=== PATIENT | female | born 1995 | race Caucasian/White ===

== ENCOUNTER 2017-06-11 09:40 | Inpatient (IN) | payer MEDICAID ==
[2017-06-11] MEDS ORDERED: Misoprostol 25 MCG (1/4 of 100 MCG) Tab VAG PRN ×2 (09:47→10:32)
[2017-06-11] MEDS ORDERED: Acetaminophen 325 MG Tab PO PRN (09:47)
[2017-06-11] MEDS ORDERED: Sodium Chloride 0.9% 10 ML Syringe FLUSH PRN (09:47)
[2017-06-11] MEDS ORDERED: Oxytocin/Normal Saline 30 UNIT/500 ML BAG IV SCH (10:00)
[2017-06-11] MEDS ORDERED: Misoprostol 50 MCG (1/2 of 100 MCG) Tab VAG PRN (10:25)
--- NOTE | 2017-06-11 13:31 | HP ---
DOS: 06/11/2017 CHIEF COMPLAINT: Post gestational age, induction of labor. HISTORY OF PRESENT ILLNESS: The patient is a 21-year-old female, G2, P1-0-0-1, who is currently 41 and 1/7 days gestation by a 23-week ultrasound. She was seen in the clinic this morning with Dr. Harris for a cervical exam, found to be 2 cm dilated and approximately 60% effaced. This morning, she was having contractions, but not severe enough that she required Tylenol or was concerned about going into labor. She has had no back pain, no regular timed contractions. She has no edema. No headaches or visual changes. No nausea or vomiting. Mother is blood type A positive, rubella immune, and GBS status is pending. PAST OBSTETRIC HISTORY: 06/06/15 3800 g female via here at [facility] at 39 weeks 5 days gestation. PAST MEDICAL HISTORY: Chlamydia, February 2017, treated with 1 g of azithromycin, confirmed curative treatment in April 2017, maternal anemia of , hemoglobin of 12.2 in second trimester, history of chickenpox, Pap smear with ASCUS. FAMILY HISTORY: Paternal uncle, history of bladder cancer. Paternal grandmother, history of cancer, unsure of what kind. Mother's side of the family, no medical concerns. SOCIAL HISTORY: The patient lives with , Bob Schaefer in [place]. since 2015. This is their first child together. works at [employer]. 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 They both quit smoking in October of 2016 when they found out she was . REVIEW OF SYSTEMS: Negative. General: The patient denies headaches, change in vision or blurry vision, sore throat, neck stiffness. Lungs: No cough, wheezing, or difficulty breathing. Chest: No palpitations, no chest pain. Abdomen: Denies abdominal pain, that is not from the uterine contractions. Contractions have been irregular and non-intense. Musculoskeletal: No edema, no joint pain. PHYSICAL EXAMINATION: Vital Signs: Admission vitals are currently pending. HEENT: Head is normocephalic and atraumatic. Eyes, pupils are PERRLA, globes are normal. Mucosal membranes moist. Neck: Supple. Nontender. Heart: Regular without murmur. S1, S2. Regular rate and rhythm. Pedal pulses are palpable. Radial pulses palpable. Lungs: Clear to auscultation bilaterally in anterior and posterior medina. Abdomen: Gravid habitus. Spine: Straight. SKIN: Warm and dry. LABORATORY DATA: Admission labs are pending. ASSESSMENT: 1. A 21-year-old female, at 41 weeks 1 day gestation, admitted for induction of labor. 2. G2, P1-0-0-1. 3. Chlamydia in , treated successfully with Zithromax. 4. Blood type A positive, rubella immune, GBS negative PLAN: The patient is admitted to the hospital at this time. We will be placing 50 mg of Cytotec for cervical ripening. The patient requesting to walk around post 30 minutes of placement of Cytotec. No concerns with her, being able to be up and walking around to further induce labor. The patient's questions have been answered and they are in agreement with this plan. [facility] /[id number] MTDD
--- NOTE | 2017-06-11 17:38 | PCM.SN ---
- Free Text/Narrative Note: DOS: 06-11-17 4439 Sarika doing well. Cytotec X 2 for post-term , 21yo @ 41w1d. tracings reassuring cervix 4cm, 75% effaced head low -2/-1st with cxn BOW palpable, and AROM carried out without complications with return of large amount of clear fluid baby currently LOP Will continue to monitor closely Sarika comfortable at this time. discussed irregular cxn pattern, and possible pitocin augmentation in needed. further management pending her course in labor. All questions answered for the couple. they seem pleased with plan at this time. hmb.
[2017-06-11] MEDS: Lactated Ringers 1,000 ML IV SCH ×2 (19:10→19:46)
[2017-06-11] MEDS ORDERED: Ondansetron 4 MG/2 ML SDV IV PRN (19:19)
[2017-06-11] MEDS ORDERED: fentaNYL 100 MCG/2 ML SDV ONE (19:25)
[2017-06-11] MEDS ORDERED: Bupivacaine 0.75%/D5W 2 ML Amp ONE (19:25)
--- NOTE | 2017-06-11 19:53 | PCM.SN ---
- Free Text/Narrative Note: Intrathecal. Sitting position, sterile prep and drape. 1% lidocaine w bicarb for skinwheal to L2L3 interspace, introducer, 25 ga pencan x 1. Pos CSF, neg heme, neg parasthesia. 20 mcg pf sufenta, 30 mcg pf fentanyl, 0.4 ml pf ns, 6 mg of 0.75% PF Bupivacaine injected after CSF aspiration. Pt to L lateral position. Procedure time 1929 to 2004
[2017-06-11] MEDS ORDERED: Simethicone 80 MG Tab.Chew PO PRN (20:39)
[2017-06-11] MEDS ORDERED: Zolpidem 5 MG Tab PO PRN (20:39)
[2017-06-11] MEDS ORDERED: Tranexamic Acid 1,000 MG in Sodium Chloride 0.9% 100 ML IV PRN (20:39)
[2017-06-11] MEDS ORDERED: Benzocaine/Menthol 20%-0.5% Spray 56 GM Canister TOP PRN (20:39)
[2017-06-11] MEDS ORDERED: Carboprost Tromethamine 250 MCG/1 ML Amp IM PRN (20:39)
[2017-06-11] MEDS ORDERED: Misoprostol 400 MCG (4 X 100 MCG TAB) RECTAL PRN (20:39)
--- NOTE | 2017-06-11 20:54 | PCM.DEL ---
L & D Note - General Info Date of Service: 06/11/17 (time of : 2025) Mother's Due Date: 06/03/17 - Delivery Note Labor: Induced by ARM Cervical Ripening Method: Misoprostil Delivery Outcome: Livebirth Infant Delivery Method: Spontaneous Vaginal Delivery-Single Infant Delivery Mode: Spontaneous Presentation: Right Occiput Anterior (LIS) Nuchal Cord: Present, Reduced Prep: Povidone-Iodine (Betadine Anesthesia Type: Intrathecal (excellent block) Amniotic Fluid Description: Clear Episiotomy Type: None Laceration: None Placenta: Intact, Expressed Cord: 3 Vessels Estimated Blood Loss: 200 Resuscitation Needed: No : Suctioned, Bulb Syringe, Stimulated, Warmed, [place] Used (to mother's chest for skin to skin contact immediately after delivery) Provider: Rosana Harris Score 1 min: 9 Score 5 min: 9 Second Stage Interventions: Reports: Pushing Effectively (5 cxns), Pushing, McRobert's Position - General Info Date of Service: 06/11/17 Admission Dx/Problem (Free Text): delightful 21yo induced for post-term @ 41w1d with Cytotec X2, AROM. progressed into active labor. intrathecal placed with excellent results. delivered over intact perineum viable female @ 2025 7lb 15oz 3595g APGARs 9 & 9 3VC 200cc EBL placenta intact. - Review of Systems General: Reports: No Symptoms HEENT: Reports: No Symptoms Pulmonary: Reports: No Symptoms Cardiovascular: Reports: No Symptoms Gastrointestinal: Reports: No Symptoms Genitourinary: Reports: No Symptoms Musculoskeletal: Reports: No Symptoms Skin: Reports: No Symptoms Neurological: Reports: No Symptoms Psychiatric: Reports: No Symptoms - Patient Data Vitals - Most Recent: Last Vital Signs Temp 97.5 F 06/11/17 19:30 Pulse 75 06/11/17 20:15 Resp 18 06/11/17 20:15 BP 131/66 06/11/17 20:15 Pulse Ox 98 06/11/17 20:15 Weight - Most Recent: 186 lb I&O - Last 24 Hours: Intake & Output 06/11/17 06/11/17 06/11/17 06:59 14:59 22:59 Output Total 150 Balance -150 Lab Results Last 24 Hours: Laboratory Results - last 24 hr 06/11/17 Range/Units 10:00 WBC 9.9 (5.0-10.0) 10^3/uL RBC 4.23 (4.2-5.4) 10^6/uL Hgb 11.2 L (12.0-16.0) g/dL Hct 34.0 L (37.0-47.0) % MCV 80.4 D (80-100) fL MCH 26.5 L (27.0-34.0) pg MCHC 32.9 L (33.0-35.0) g/dL Plt Count 216 (150-450) 10^3/uL Med Orders - Current: Current Medications Acetaminophen (Tylenol) 650 mg PO Q4H PRN PRN Reason: Pain/Fever Benzocaine/Menthol (Dermoplast Pain Relief [place]) 0 gm TOP Q4H PRN PRN Reason: Perineal comfort measures Carboprost Tromethamine (Hemabate Ds) 250 mcg IM ASDIRECTED PRN PRN Reason: Excessive vaginal bleeding Docusate Sodium (Colace) 100 mg PO BID PRN PRN Reason: Constipation Lactated Ringer's (Ringers, Lactated) 1,000 mls @ 999 mls/hr IV ASDIRECTED DELFINO Last Admin: 06/11/17 19:46 Dose: 999 mls/hr Oxytocin/Sodium Chloride (Pitocin In Ns 30 Unit/500 Ml) 30 unit in 500 mls @ 2 mls/hr IV TITRATE DELFINO; 2 MUNITS/MIN PRN Reason: Protocol Tranexamic Acid 1,000 mg/ (Sodium Chloride) 110 mls @ 660 mls/hr IV ONETIME PRN PRN Reason: Bleeding Ibuprofen (Motrin) 800 mg PO Q8H PRN PRN Reason: Mild Pain or Fever Misoprostol (Cytotec) 50 mcg VAG Q4H PRN PRN Reason: cervical ripening Last Admin: 06/11/17 10:54 Dose: 50 mcg Misoprostol (Cytotec) 25 mcg VAG Q4H PRN PRN Reason: Cervical Ripening Last Admin: 06/11/17 15:05 Dose: 25 mcg Misoprostol (Cytotec) 800 mcg RECTAL ONETIME PRN PRN Reason: Hemorrhage Ondansetron HCl (Zofran) 4 mg IV Q4H PRN PRN Reason: Nausea/Vomiting Last Admin: 06/11/17 19:39 Dose: 4 mg Prenat Multivit/Door/Iron/Folic Ac ( Plus Iron) 1 each PO DAILY DELFINO Simethicone (Simethicone) 80 mg PO Q4H PRN PRN Reason: Gas Sodium Chloride (Saline Flush) 10 ml FLUSH ASDIRECTED PRN PRN Reason: Keep Vein Open Zolpidem Tartrate (Ambien) 5 mg PO BEDTIME PRN PRN Reason: Insomnia Discontinued Medications Bupivacaine HCl/Dextrose (Marcaine 0.75% Spinal) Confirm Administered Dose 2 ml .ROUTE .STK-MED ONE Stop: 06/11/17 19:26 Fentanyl (Sublimaze) Confirm Administered Dose 100 mcg .ROUTE .STK-MED ONE Stop: 06/11/17 19:26 Lidocaine HCl (Xylocaine-Mpf 1%) Confirm Administered Dose 5 ml .ROUTE .STK-MED ONE Stop: 06/11/17 19:26 Misoprostol (Cytotec) 25 mcg VAG Q4H PRN PRN Reason: cervical ripening Sodium Bicarbonate (Sodium Bicarbonate 4.2%) Confirm Administered Dose 5 meq .ROUTE .STK-MED ONE Stop: 06/11/17 19:27 Sufentanil Citrate (Sufenta) Confirm Administered Dose 50 mcg .ROUTE .STK-MED ONE Stop: 06/11/17 19:26 - Exam General: Alert, Oriented HEENT: Pupils Equal, Pupils Reactive, EOMI, Mucous Membr. Moist/[place] Neck: Supple Lungs: Clear to Auscultation, Normal Respiratory Effort Cardiovascular: Regular Rate, Regular Rhythm Back Exam: Normal Inspection, Full Range of Motion Extremities: Normal Inspection, Normal Range of Motion, Non-Tender, No Pedal Edema, Normal Capillary Refill Skin: Warm, Dry, Intact Neurological: No New Focal Deficit Psy/Mental Status: Alert, Normal Affect, Normal Mood - Problem List & Annotations (1) Post-dates , delivered, current hospitalization SNOMED Code(s): 950702412 Code(s): O48.0 - POST-TERM Status: Acute Current Visit: Yes (2) Normal vaginal delivery SNOMED Code(s): 09313235 Code(s): O80 - ENCOUNTER FOR FULL-TERM UNCOMPLICATED DELIVERY Status: Acute Current Visit: Yes (3) Blood type A+ SNOMED Code(s): 194258899 Code(s): Z67.10 - TYPE A BLOOD, RH POSITIVE Status: Acute Current Visit: Yes (4) Rubella immune SNOMED Code(s): 426827430 Code(s): Z78.9 - OTHER SPECIFIED HEALTH STATUS Status: Acute Current Visit: Yes (5) Group B Streptococcus not isolated SNOMED Code(s): 502862228 Code(s): BGW8081 - Status: Acute Current Visit: Yes - Problem List Review Problem List Initiated/Reviewed/Updated: Yes - My Orders Last 24 Hours: My Active Orders 06/11/17 19:19 Ondansetron [Zofran] 4 mg IV Q4H PRN 06/11/17 20:39 Consult to Care Transport Nurse [CONS] Routine Benzocaine/Menthol [Dermoplast Pain Relief [place]] See Dose Instructions TOP Q4H PRN Carboprost Tromethamine [Hemabate DS] 250 mcg IM ASDIRECTED PRN Docusate Sodium [Colace] 100 mg PO BID PRN Ibuprofen [Motrin] 800 mg PO Q8H PRN Misoprostol [Cytotec] 800 mcg RECTAL ONETIME PRN Simethicone 80 mg PO Q4H PRN Tranexamic Acid [Cyklokapron] 1,000 mg Sodium Chloride 0.9% [Normal Saline] 100 ml IV ONETIME Zolpidem [Ambien] 5 mg PO BEDTIME PRN Resuscitation Status Routine 06/11/17 20:40 Assess Lochia [WOMSER] Per Unit Routine Assess Uterine Involution [WOMSER] Per Unit Routine Breast Pump [WOMSER] Per Unit Routine Ice Therapy [OM.PC] Per Unit Routine Perineal Care [OM.PC] Per Unit Routine Saline Lock Insert [OM.PC] Urgent Sitz Bath [OM.PC] Per Unit Routine 06/12/17 09:00 Vit with Ca/FA/Iron [ Plus Iron] 1 each PO DAILY 06/13/17 05:11 CBC W/O DIFF,HEMOGRAM [HEME] AM - Assessment Assessment:: Assessment: 21yo G2 now P2 vaginal delivery, induced for post dates @ 41w1d delivered on 06-11-17 @ 2025 APGARs 9 & 9 weight 3595g/ 7lb 15oz intact perineum maternal blood type A+ rubella immune GBS negative Plan: routine orders and cares. continue to monitor closely hemogram PPD #2. baby to mom's chest after delivery for skin to skin. parents bonding. will continue to room in as much as able. hmb
[2017-06-12] MEDS: Ibuprofen 800 MG Tab PO PRN ×2 (02:53→16:03)
[2017-06-12] MEDS: Docusate Sodium 100 MG Cap PO PRN ×2 (08:11→21:51)
[2017-06-12] MEDS: Prenatal Multivitamin with Calcium/Folic Acid/Iron Tab PO SCH (08:11)
--- NOTE | 2017-06-12 12:17 | PN ---
DATE: 06/12/2017 SUBJECTIVE: day 1. The patient states she is "feeling good." She is having cramping pain in her abdomen that is decreasing in intensity and frequency. She has questions if she should be doing her own fundal massages. She has been up to the bathroom and voiding and urinating with no difficulty. Tolerating a regular diet. No nausea, no vomiting. No headaches and no edema. Lochia has been decreasing in amount since delivery. OBJECTIVE: Vital Signs: Temperature 98.2, pulse 63, blood pressure 112/63, and respirations 18. HEENT: Head normocephalic. Mucous membranes moist. Neck: Supple. Lungs: Clear to auscultation bilaterally in anterior and posterior. No cough. No wheeze. Abdomen: Soft, nontender. Uterus is firm at umbilicus. Extremities: Full range of motion. No edema. Skin: Warm and dry. LABORATORY DATA: No new laboratory data today. ASSESSMENT: A 21-year-old female, 2, now para 2-0-0-2 one day for 41 week 1 day gestation, normal spontaneous delivery induced with Cytotec x2. Artificial rupture of membranes. She is bottle-feeding. PLAN: Continue routine cares. Expecting discharge home with baby tomorrow. Follow up with Dr. Harris in the clinic. [facility] /[id number] MTDD
[2017-06-12] MEDS ORDERED: fentaNYL 100 MCG/2 ML SDV ITHECAL ONE (14:54)
[2017-06-12] MEDS ORDERED: Bupivacaine 0.75%/D5W 2 ML Amp ONE (14:54)
[2017-06-13] MEDS: Ibuprofen 800 MG Tab PO PRN (03:23)
[2017-06-13] MEDS: Docusate Sodium 100 MG Cap PO PRN (09:06)
[2017-06-13] MEDS: Prenatal Multivitamin with Calcium/Folic Acid/Iron Tab PO SCH (09:06)
--- NOTE | 2017-06-13 09:35 | PCM.DCSUM1 ---
Discharge Summary - Hospital Course Free Text/Narrative:: Post Day 2 Cramping minimal, low in severity. Lochia decreased compared to yesterday Ambulating, tolerating normal diet Voiding, had soft BM Bottle feeding Uterus firm below umbilicus No fever, head ache, nausea No vision changes No joint pain Brief History: 21yo induced for post-term @ 41w1d with Cytotec X2 , AROM. progressed into active labor. intrathecal. delivered over intact perineum. viable female @ 2025. 7lb 15oz 3595g. APGARs 9 & 9. 3VC. 200cc EBL. placenta intact. - Discharge Data Discharge Date: 06/13/17 Discharge Disposition: Home, Self-Care 01 Condition: Good - Patient Summary/Data Consults: Consultations 06/11/17 20:39 Consult to Outdoor Fitness Trainer [CONS] Routine - Patient Instructions Diet: Usual Diet as Tolerated, Regular Diet as Tolerated Activity: As Tolerated, No Lifting Over 25 Pounds, No Strenuous Activities Driving: May Drive Today Showering/Bathing: May Shower Other/Special Instructions: Follow up with Primary Care Provider next week for weight check for baby and 6 week check. - Discharge Plan Home Medications: Home Meds Vit with Ca/FA/Iron [ Plus Iron] 1 tab PO DAILY 06/05/15 [ History] Ferrous Sulfate [Iron] 325 mg PO BID 06/11/17 [History] - Discharge Summary/Plan Comment DC Time >30 min.: No - General Info Date of Service: 06/13/17 Admission Dx/Problem (Free Text: delightful 21yo induced for post-term @ 41w1d with Cytotec X2, AROM. progressed into active labor. intrathecal placed with excellent results. delivered over intact perineum viable female @ 2025 7lb 15oz 3595g APGARs 9 & 9 3VC 200cc EBL placenta intact. Subjective Update: Post Day 2 Cramping minimal, low in severity. Lochia decreased compared to yesterday Ambulating, tolerating normal diet Voiding, had soft BM Bottle feeding Uterus firm below umbilicus No fever, head ache, nausea No vision changes No joint pain - Review of Systems General: Reports: No Symptoms. Denies: Fever HEENT: Reports: No Symptoms. Denies: Headaches, Visual Changes Pulmonary: Reports: No Symptoms. Denies: Shortness of Breath, Cough Cardiovascular: Reports: No Symptoms. Denies: Chest Pain, Lightheadedness Gastrointestinal: Reports: No Symptoms, Flatus. Denies: Vomiting Genitourinary: Reports: No Symptoms. Denies: Dysuria Musculoskeletal: Reports: No Symptoms Skin: Reports: No Symptoms Neurological: Reports: No Symptoms Psychiatric: Reports: No Symptoms - Patient Data Vitals - Most Recent: Last Vital Signs Temp 98.1 F 06/12/17 20:00 Pulse 63 06/12/17 20:00 Resp 16 06/12/17 20:00 BP 122/67 06/12/17 20:00 Pulse Ox 98 06/11/17 20:15 Weight - Most Recent: 186 lb Lab Results - Last 24 hrs: Laboratory Results - last 24 hr 06/13/17 Range/Units 06:48 WBC 9.8 (5.0-10.0) 10^3/uL RBC 3.91 L (4.2-5.4) 10^6/uL Hgb 10.3 L (12.0-16.0) g/dL Hct 31.9 L (37.0-47.0) % MCV 81.6 (80-100) fL MCH 26.3 L (27.0-34.0) pg MCHC 32.3 L (33.0-35.0) g/dL Plt Count 213 (150-450) 10^3/uL Med Orders - Current: Current Medications Acetaminophen (Tylenol) 650 mg PO Q4H PRN PRN Reason: Pain/Fever Benzocaine/Menthol (Dermoplast Pain Relief [place]) 0 gm TOP Q4H PRN PRN Reason: Perineal comfort measures Carboprost Tromethamine (Hemabate Ds) 250 mcg IM ASDIRECTED PRN PRN Reason: Excessive vaginal bleeding Docusate Sodium (Colace) 100 mg PO BID PRN PRN Reason: Constipation Last Admin: 06/13/17 09:06 Dose: 100 mg Lactated Ringer's (Ringers, Lactated) 1,000 mls @ 999 mls/hr IV ASDIRECTED DELFINO Last Admin: 06/11/17 19:46 Dose: 999 mls/hr Oxytocin/Sodium Chloride (Pitocin In Ns 30 Unit/500 Ml) 30 unit in 500 mls @ 2 mls/hr IV TITRATE DELFINO; 2 MUNITS/MIN PRN Reason: Protocol Last Titration: 06/11/17 23:30 Dose: 0 mls/hr Tranexamic Acid 1,000 mg/ (Sodium Chloride) 110 mls @ 660 mls/hr IV ONETIME PRN PRN Reason: Bleeding Ibuprofen (Motrin) 800 mg PO Q8H PRN PRN Reason: Mild Pain or Fever Last Admin: 06/13/17 03:23 Dose: 800 mg Misoprostol (Cytotec) 50 mcg VAG Q4H PRN PRN Reason: cervical ripening Last Admin: 06/11/17 10:54 Dose: 50 mcg Misoprostol (Cytotec) 25 mcg VAG Q4H PRN PRN Reason: Cervical Ripening Last Admin: 06/11/17 15:05 Dose: 25 mcg Misoprostol (Cytotec) 800 mcg RECTAL ONETIME PRN PRN Reason: Hemorrhage Ondansetron HCl (Zofran) 4 mg IV Q4H PRN PRN Reason: Nausea/Vomiting Last Admin: 06/11/17 19:39 Dose: 4 mg Prenat Multivit/[place]/Iron/Folic Ac ( Plus Iron) 1 each PO DAILY DELFINO Last Admin: 06/13/17 09:06 Dose: 1 each Simethicone (Simethicone) 80 mg PO Q4H PRN PRN Reason: Gas Sodium Chloride (Saline Flush) 10 ml FLUSH ASDIRECTED PRN PRN Reason: Keep Vein Open Zolpidem Tartrate (Ambien) 5 mg PO BEDTIME PRN PRN Reason: Insomnia Discontinued Medications Bupivacaine HCl/Dextrose (Marcaine 0.75% Spinal) Confirm Administered Dose 2 ml .ROUTE .STK-MED ONE Stop: 06/11/17 19:26 Last Admin: 06/12/17 07:58 Dose: Not Given Bupivacaine HCl/Dextrose (Marcaine 0.75% Spinal) 1.3 ml .XX .STK-MED ONE Stop: 06/12/17 14:55 Fentanyl (Sublimaze) Confirm Administered Dose 100 mcg .ROUTE .STK-MED ONE Stop: 06/11/17 19:26 Last Admin: 06/12/17 07:58 Dose: Not Given Fentanyl (Sublimaze) 30 mcg ITHECAL .STK-MED ONE Stop: 06/12/17 14:55 Lidocaine HCl (Xylocaine-Mpf 1%) Confirm Administered Dose 5 ml .ROUTE .STK-MED ONE Stop: 06/11/17 19:26 Last Admin: 06/12/17 07:58 Dose: Not Given Lidocaine HCl (Xylocaine-Mpf 1%) 0.5 ml .XX .STK-MED ONE Stop: 06/12/17 14:55 Misoprostol (Cytotec) 25 mcg VAG Q4H PRN PRN Reason: cervical ripening Sodium Bicarbonate (Sodium Bicarbonate 4.2%) Confirm Administered Dose 5 meq .ROUTE .STK-MED ONE Stop: 06/11/17 19:27 Last Admin: 06/12/17 07:59 Dose: Not Given Sufentanil Citrate (Sufenta) Confirm Administered Dose 50 mcg .ROUTE .STK-MED ONE Stop: 06/11/17 19:26 Last Admin: 06/12/17 07:58 Dose: Not Given Sufentanil Citrate (Sufenta) 20 mcg ITHECAL .STK-MED ONE Stop: 06/12/17 14:55 - Exam General: Reports: Alert, Oriented HEENT: Reports: Pupils Equal, Pupils Reactive, Mucous Membr. Moist/[place] Neck: Reports: Supple, Trachea Midline Lungs: Reports: Clear to Auscultation, Normal Respiratory Effort. Denies: Crackles, Wheezing Cardiovascular: Reports: Regular Rate, Regular Rhythm GI/Abdominal Exam: Normal Bowel Sounds, Other Back Exam: Reports: Normal Inspection Extremities: Normal Inspection, No Pedal Edema, Normal Capillary Refill Skin: Reports: Warm, Dry, Intact Neurological: Reports: No New Focal Deficit Psy/Mental Status: Reports: Alert, Normal Affect, Normal Mood *Q Meaningful Use (DIS) - VTE *Q VTE Criteria *Q: - Stroke *Q Stroke Criteria *Q: - AMI *Q AMI Criteria *Q:
[2017-06-13 12:38] VITALS: BP 120/64
== END 2017-06-13 11:05 | disposition home or self-care (01) | DRG 775 ==
LOC: DL.OBCHECK 09:40 → DL.OB 10:06 → OBSVTOIN 20:26
PROVIDERS: ADMIT Family Medicine; ATTEND Family Medicine
PROC: 10E0XZZ Delivery of Products of Conception, External Approach (ICD-10-PCS; principal; 2017-06-11)
PROC: 3E0P7VZ Introduction of Hormone into Female Reproductive, Via Natural or Artificial Opening (ICD-10-PCS; 2017-06-11)
PROC: 10907ZC Drainage of Amniotic Fluid, Therapeutic from Products of Conception, Via Natural or Artificial Opening (ICD-10-PCS; 2017-06-11)
PROC: 00HU33Z Insertion of Infusion Device into Spinal Canal, Percutaneous Approach (ICD-10-PCS; 2017-06-11)
PROC: 3E0R3BZ Introduction of Anesthetic Agent into Spinal Canal, Percutaneous Approach (ICD-10-PCS; 2017-06-11)
DX: O48.0 Post-term pregnancy (principal); Z3A.41 41 weeks gestation of pregnancy; Z37.0 Single live birth; O69.81X0 Labor and delivery complicated by cord around neck, without compression, not applicable or unspecified; Z87.891 Personal history of nicotine dependence
CPT/HCPCS: 36415; 59409; 85027; A9270-GY; J2405; J2590; J3010; J7120